=== PATIENT | female | born 1955 | race Caucasian/White ===

== ENCOUNTER 2023-09-17 01:40 | Inpatient (IN) | payer MEDICARE, OTHER ==
[~2023-09-17] VITALS: Ht 154.9 cm; Wt 138.8 kg
[2023-09-17 02:25] LABS: BASO % 0.5 % (0.0-1.0); EOS # 0.2 10^3/uL (0.0-0.5); EOS % 3.8 % (0.0-3.0); HEMATOCRIT 32.7 % (36.0-47.0); HEMOGLOBIN 10.6 g/dl (12.0-15.5); LYMPH # 1.2 10^3/uL (1.5-5.0); LYMPH % 18.5 % (24.0-44.0); MEAN CORPUSCULAR HGB CONC 32.4 g/dl (32.0-36.5); MEAN CORPUSCULAR VOLUME 95.6 fl (80.0-96.0); MONO # 0.7 10^3/uL (0.0-0.8); MONO % 10.8 % (2.0-8.0); NEUTROPHILS # 4.1 10^3/uL (1.5-8.5); NEUTROPHILS % 65.9 % (36.0-66.0); PLATELET COUNT, AUTOMATED 170 10^3/uL (150-450); RED BLOOD COUNT 3.42 10^6/uL (4.00-5.40); WHITE BLOOD COUNT 6.3 10^3/uL (4.0-10.0)
[2023-09-17 02:38] LABS: INR 1.2; PARTIAL THROMBOPLASTIN TIME 28.1 SECONDS (24.8-34.2); PROTHROMBIN TIME 14.8 SECONDS (12.5-14.5)
[2023-09-17 02:48] LABS: LIPASE 21 U/L (12-53)
[2023-09-17 02:50] LABS: CPK CREATINE PHOSPHOKINASE 376 U/L (34-145)
[2023-09-17 02:51] LABS: ALBUMIN 3.3 G/DL (3.2-5.2); ALKALINE PHOSPHATASE 90 U/L (46-116); ALT/SGPT 21 U/L (7.0-40); AST/SGOT 29 U/L (<34); BILIRUBIN,DIRECT 0.2 MG/DL (<0.4); BILIRUBIN,TOTAL 0.4 MG/DL (0.3-1.2); BLOOD UREA NITROGEN 27 MG/DL (9-23); CALCIUM LEVEL 9.3 MG/DL (8.3-10.6); CARBON DIOXIDE LEVEL 30 MMOL/L (20-31); CHLORIDE LEVEL 104 MMOL/L (98-107); CK-MB VALUE MASS 8.7 NG/ML (<3.6); CREATININE FOR GFR 1.17 MG/DL (0.55-1.30); GLOMERULAR FILTRATION RATE 48.7 (>39); GLUCOSE, FASTING 131 MG/DL (74-106); MB/CK RELATIVE INDEX 2.31 (< OR =4); POTASSIUM SERUM 4.4 MMOL/L (3.5-5.1); SODIUM LEVEL 139 MMOL/L (136-145); TOTAL PROTEIN 6.3 G/DL (5.7-8.2)
[2023-09-17 03:56] LABS: CK-MB VALUE MASS 8.2 NG/ML (<3.6)
[2023-09-17 03:56] LABS: ABG HCO3 29.6 MMOL/L (22.0-26.0); ABG O2 SATURATION 93.6 % (95.0-99.0); ABG PARTIAL PRESSURE CO2 48.5 mmHg (35.0-45.0); ABG PARTIAL PRESSURE O2 69.7 mmHg (75.0-100.0); ABG TOTAL CO2 31.1 MMOL/L (23.0-31.0); ABG pH (ARTERIAL) 7.403 UNITS (7.350-7.450)
[2023-09-17 03:57] LABS: MB/CK RELATIVE INDEX 2.12 (< OR =4)
[2023-09-17 04:07] LABS: FREE T4 1.26 NG/DL (0.89-1.76)
[2023-09-17 04:19] LABS: AMPHETAMINES LEVEL URINE NEGATIVE (NEGATIVE); BARBITURATES URINE NEGATIVE (NEGATIVE); BENZODIAZEPINES URINE NEGATIVE (NEGATIVE); CANNABINOIDS URINE NEGATIVE (NEGATIVE); COCAINE METABOLITE URINE NEGATIVE (NEGATIVE); METHADONE URINE NEGATIVE (NEGATIVE); OPIATES URINE NEGATIVE (NEGATIVE); PHENCYCLIDINE URINE NEGATIVE (NEGATIVE)
[2023-09-17 04:42] LABS: THYROID STIMULATING HORMONE 5.274 uIU/ML (0.55-4.78)
[2023-09-17] MEDS ORDERED: FLUTISP PO (04:45)
[2023-09-17] MEDS ORDERED: TOLT4CAP3 PO (04:45)
[2023-09-17] MEDS ORDERED: LOSA50TA28 PO (04:45)
[2023-09-17] MEDS ORDERED: TRAZ-257 PO (04:45)
[2023-09-17] MEDS ORDERED: CONC36TA4 PO (04:45)
[2023-09-17] MEDS ORDERED: IMIP50TA8 PO (04:45)
[2023-09-17] MEDS ORDERED: CELE0.09 PO (04:45)
[2023-09-17] MEDS ORDERED: TRAN10TA PO (04:45)
[2023-09-17] MEDS ORDERED: POTA-151 PO (04:45)
[2023-09-17] MEDS ORDERED: VIBE75TA PO (04:45)
[2023-09-17] MEDS ORDERED: ALEN70TA82 PO (04:45)
[2023-09-17] MEDS ORDERED: FAMO1TAB11 PO (04:45)
[2023-09-17] MEDS ORDERED: SYNT75TA PO (04:45)
[2023-09-17] MEDS ORDERED: HOME MED LIST COMPLETE! XX SCH (04:50)
[2023-09-17 05:44] LABS: ETHYL ALCOHOL (ETHANOL) < 0.003 % (0.000-0.010)
[2023-09-17 05:46] LABS: SALICYLATE LEVEL < 3.0 MG/DL (<30)
[2023-09-17] MEDS: NS 1,000 ML IV SCH (09:46)
[2023-09-17] MEDS: UNRESOLVED CLARIFICATION ENTRY XX SCH (09:55)
[2023-09-17 11:54] VITALS: BP 134/71; TEMP 96.9; O2SAT 97
[2023-09-17] MEDS: ENOXAPARIN 40MG/0.4ML SYRINGE (J1650 PER 10MG) SC SCH (13:50)
[2023-09-17] MEDS: NYSTATIN 100,000 UNITS/GM TOPICAL PWD 15GM TOP SCH (13:51)
[2023-09-17] MEDS: LEVOTHYROXINE 75MCG TABLET (0.075MG) PO SCH (15:00)
[2023-09-17 15:18] VITALS: BP 144/86; TEMP 97.3; O2SAT 96
[2023-09-17] MEDS: LOSARTAN 50MG TABLET PO SCH (15:30)
[2023-09-17] MEDS: FAMOTIDINE 20 MG TAB PO SCH (15:30)
[2023-09-17 15:39] LABS: IRON (FE) 46 UG/DL (50-170); PERCENT SATURATION 18.5 % (13.2-45.0); TOTAL IRON BINDING CAPACITY 248 UG/DL (250-425)
[2023-09-17 15:41] LABS: FERRITIN 312.8 NG/ML (7.3-270.7)
[2023-09-17 15:42] LABS: FOLATE > 24.00 NG/ML (>5.4); VITAMIN B12 LEVEL 1770 PG/ML (211-911)
[2023-09-17 19:44] VITALS: BP 141/83; TEMP 97.4; O2SAT 97
[2023-09-17] MEDS: TOLTERODINE TARTRATE 2 MG LA CAP (DETROL LA) PO SCH (20:05)
[2023-09-17 23:28] VITALS: BP 138/87; TEMP 97.2; O2SAT 96
[2023-09-18] VITALS (16 sets, daily range): BP systolic 127–163; BP diastolic 71–84; TEMP 97.4–97.9; O2SAT 91–98
[2023-09-18] MEDS: UNRESOLVED PATIENT OWN MED ORDER XX SCH (00:01)
[2023-09-18 05:27] LABS: BASO % 0.5 % (0.0-1.0); EOS # 0.2 10^3/uL (0.0-0.5); EOS % 3.5 % (0.0-3.0); HEMOGLOBIN 10.5 g/dl (12.0-15.5); LYMPH % 17.8 % (24.0-44.0); MEAN CORPUSCULAR HEMOGLOBIN 31.3 pg (27.0-33.0); MEAN CORPUSCULAR HGB CONC 32.8 g/dl (32.0-36.5); MEAN CORPUSCULAR VOLUME 95.2 fl (80.0-96.0); MONO # 0.6 10^3/uL (0.0-0.8); MONO % 10.2 % (2.0-8.0); NEUTROPHILS # 3.7 10^3/uL (1.5-8.5); NEUTROPHILS % 67.6 % (36.0-66.0); PLATELET COUNT, AUTOMATED 179 10^3/uL (150-450); RED BLOOD COUNT 3.36 10^6/uL (4.00-5.40); WHITE BLOOD COUNT 5.5 10^3/uL (4.0-10.0)
[2023-09-18 06:01] LABS: BLOOD UREA NITROGEN 17 MG/DL (9-23); CALCIUM LEVEL 7.9 MG/DL (8.3-10.6); CARBON DIOXIDE LEVEL 29 MMOL/L (20-31); CHLORIDE LEVEL 109 MMOL/L (98-107); CREATININE FOR GFR 0.92 MG/DL (0.55-1.30); GLOMERULAR FILTRATION RATE > 60.0 (>39); GLUCOSE, FASTING 95 MG/DL (74-106); POTASSIUM SERUM 4.2 MMOL/L (3.5-5.1); SODIUM LEVEL 142 MMOL/L (136-145)
[2023-09-18] MEDS: ACETAMINOPHEN TAB 650MG DOSE (2X325MG) PO PRN (11:54)
[2023-09-18] MEDS: traZODone 50 MG TAB PO SCH (20:40)
[2023-09-18] MEDS: IMIPRAMINE 50 MG TAB PO SCH (20:56)
[2023-09-19 03:32] VITALS: BP 140/72; TEMP 97.2; O2SAT 94
[2023-09-19 05:18] LABS: BASO % 0.6 % (0.0-1.0); EOS # 0.2 10^3/uL (0.0-0.5); EOS % 4.4 % (0.0-3.0); HEMATOCRIT 34.2 % (36.0-47.0); HEMOGLOBIN 11.1 g/dl (12.0-15.5); LYMPH # 0.9 10^3/uL (1.5-5.0); LYMPH % 16.8 % (24.0-44.0); MEAN CORPUSCULAR HEMOGLOBIN 30.7 pg (27.0-33.0); MEAN CORPUSCULAR HGB CONC 32.5 g/dl (32.0-36.5); MEAN CORPUSCULAR VOLUME 94.7 fl (80.0-96.0); MONO # 0.6 10^3/uL (0.0-0.8); MONO % 11.2 % (2.0-8.0); NEUTROPHILS # 3.6 10^3/uL (1.5-8.5); NEUTROPHILS % 66.6 % (36.0-66.0); PLATELET COUNT, AUTOMATED 147 10^3/uL (150-450); RED BLOOD COUNT 3.61 10^6/uL (4.00-5.40); WHITE BLOOD COUNT 5.4 10^3/uL (4.0-10.0)
[2023-09-19 05:34] LABS: BLOOD UREA NITROGEN 13 MG/DL (9-23); CALCIUM LEVEL 8.2 MG/DL (8.3-10.6); CARBON DIOXIDE LEVEL 30 MMOL/L (20-31); CHLORIDE LEVEL 107 MMOL/L (98-107); CREATININE FOR GFR 0.93 MG/DL (0.55-1.30); GLOMERULAR FILTRATION RATE > 60.0 (>39); GLUCOSE, FASTING 103 MG/DL (74-106); POTASSIUM SERUM 3.8 MMOL/L (3.5-5.1); SODIUM LEVEL 142 MMOL/L (136-145)
[2023-09-19 07:40] VITALS: BP 174/88; TEMP 97.6; O2SAT 97
[2023-09-19 11:59] VITALS: BP 174/79; TEMP 98; O2SAT 97
[2023-09-19 15:43] VITALS: BP 138/72
[2023-09-19 21:15] VITALS: BP 155/90
[2023-09-19 22:07] VITALS: BP 160/106; TEMP 97; O2SAT 99
[2023-09-20 04:57] VITALS: BP 164/105; TEMP 97.7; O2SAT 98
[2023-09-20 06:23] VITALS: BP 164/105
[2023-09-20 12:00] VITALS: BP 136/70; TEMP 97.6; O2SAT 98
[2023-09-20] MEDS ORDERED: IMIP50TA8 PO (14:00)
[2023-09-20] MEDS ORDERED: TRAZ-252 PO (14:00)
[2023-09-20] MEDS ORDERED: TRAN10TA PO (14:00)
== END 2023-09-20 14:50 | DRG 91 ==
LOC: EDBD 01:40 → M ED 01:40 → M ED INP 08:45 → M PCU 11:36 → M MS5PR 09-19 15:55
PROVIDERS: ADMIT Internal Medicine; ATTEND Internal Medicine
DX: G25.3 Myoclonus (principal); G93.41 Metabolic encephalopathy; F33.2 Major depressive disorder, recurrent severe without psychotic features; F41.9 Anxiety disorder, unspecified; F90.9 Attention-deficit hyperactivity disorder, unspecified type; K21.9 Gastro-esophageal reflux disease without esophagitis; M81.0 Age-related osteoporosis without current pathological fracture; E03.9 Hypothyroidism, unspecified; I10 Essential (primary) hypertension; N32.81 Overactive bladder; D64.9 Anemia, unspecified; T50.995A Adverse effect of other drugs, medicaments and biological substances, initial encounter; G47.33 Obstructive sleep apnea (adult) (pediatric); R29.6 Repeated falls; G62.9 Polyneuropathy, unspecified; R41.0 Disorientation, unspecified; G89.29 Other chronic pain; M54.9 Dorsalgia, unspecified; F03.90 Unspecified dementia, unspecified severity, without behavioral disturbance, psychotic disturbance, mood disturbance, and anxiety; N39.41 Urge incontinence; R53.1 Weakness; R47.81 Slurred speech; M47.812 Spondylosis without myelopathy or radiculopathy, cervical region; R13.12 Dysphagia, oropharyngeal phase; L30.4 Erythema intertrigo; Z79.890 Hormone replacement therapy; Z79.899 Other long term (current) drug therapy